=== PATIENT | male | born 1980 | race Caucasian/White ===

== ENCOUNTER 2017-01-19 15:51 | Emergency (ER) | payer SELFPAY ==
[2017-01-19 16:07] VITALS: BP 138/82; PULSE 93; TEMP 98; BMI 52.9
[2017-01-19] MEDS ORDERED: IBUPROFEN 600 MG TABLET (FP) PO ONE ×2 (16:25)
--- NOTE | 2017-01-19 17:25 | PDOC ---
History of Present Illness - General Chief Complaint: Injury Stated Complaint: FALL, LT SIDE PAIN Time Seen by Provider: 01/19/17 15:53 History Source: Patient Exam Limitations: No Limitations - History of Present Illness Initial Comments: 01/19/17 17:28 CC fell on steps in apt bldg yesterday with pain left hip, pelvis, and left knee Occurred: reports: yesterday Severity: reports: moderate Pain Location: reports: lower extremity Method of Injury: Yes: direct blow, fall Past History - Past Medical History Allergies/Adverse Reactions: Allergies Allergy/AdvReac Type Severity Reaction Status Date / Time venom-honey bee Allergy Mild Swelling Verified 01/19/17 15:54 [bee venom (honey bee)] Home Medications: Ambulatory Orders Omeprazole 20 mg PO PRN PRN 10/15/13 Ibuprofen 600 mg PO TID PRN #30 tablet 02/04/16 GI Disorders: Yes (GERD) - Surgical History Abdominal Surgery: Yes Cholecystectomy: Yes - Psycho/Social/Smoking Cessation Hx Anxiety: No Suicidal Ideation: No Smoking Status: Yes Smoking History: Current every day smoker Have you smoked in the past 12 months: Yes Number of Cigarettes Smoked Daily: 20 Information on smoking cessation initiated: No 'Breaking Loose' booklet given: 01/09/13 Hx Alcohol Use: No Drug/Substance Use Hx: No Substance Use Type: None Review of Systems - Review of Systems Constitutional: No: Chills, Fever, Malaise HEENTM: No: Symptoms Reported Respiratory: No: Symptoms reported ABD/GI: No: Symptoms Reported : No: Symptoms Reported, Hematuria Musculoskeletal: Yes: Gout, Joint Pain, Muscle Pain, Joint Stiffness Integumentary: No: Bruising, Lesions Neurological: No: Headache, Numbness, Paresthesia *Physical Exam - Vital Signs Last Vital Signs Temp Pulse Resp BP Pulse Ox 98 F 93 H 19 138/82 96 01/19/17 15:54 01/19/17 15:54 01/19/17 15:54 01/19/17 15:54 01/19/17 15:54 - Physical Exam General Appearance: Yes: Appropriately Dressed. No: Apparent Distress HEENT: positive: TMs Normal, Pharynx Normal Neck: positive: Supple. negative: Tender, Rigid Respiratory/Chest: positive: Lungs Clear, Accessory Muscle Use. negative: Chest Tender Cardiovascular: positive: Regular Rhythm, Regular Rate. negative: Murmur Gastrointestinal/Abdominal: negative: Tender, Organomegaly Musculoskeletal: positive: Other (tender to area lateral and just distal left knee; tender to left pelvis; no thigh pain) ED Treatment Course - RADIOLOGY Radiology Studies Ordered: Category Date Time Status KNEE 2 POS-LEFT [RAD] Stat Radiology 01/19/17 16:25 Taken PELVIS [RAD] Stat Radiology 01/19/17 16:25 Taken - Medications Given in the ED: ED Medications Discontinued Medications Generic Name Dose Route Start Last Admin Trade Name Roberto PRN Reason Stop Dose Admin Ibuprofen 600 mg 01/19/17 16:25 01/19/17 16:27 Motrin - PO 01/19/17 16:26 600 mg ONCE ONE Administration Medical Decision Making - Medical Decision Making 01/19/17 17:31 motrin given in ED; xrays read by me appear = wnl *DC/Admit/Observation/Transfer Diagnosis at time of Disposition: Contusion of left hip and thigh Qualifiers: Encounter type: initial encounter Qualified Code(s): S70.02XA - Contusion of left hip, initial encounter - Discharge Dispostion Disposition: HOME Condition at time of disposition: Stable Admit: No - Patient Instructions Additional Instructions: motrin 600mg 3 times daily; rest x 3 days - Post Discharge Activity Work/School Note: Back to Work
== END 2017-01-19 17:43 | disposition home or self-care (01) ==
LOC: JER 15:51 → JERFT 15:51
DX: S70.02XA Contusion of left hip, initial encounter (principal); S70.12XA Contusion of left thigh, initial encounter; W10.8XXA Fall (on) (from) other stairs and steps, initial encounter; Y93.89 Activity, other specified; Y92.038 Other place in apartment as the place of occurrence of the external cause; K21.9 Gastro-esophageal reflux disease without esophagitis
CPT/HCPCS: 72170-TC; 73560-TC-LT; 99281-25

== ENCOUNTER 2017-11-23 22:58 | Emergency (ER) | payer SELFPAY ==
--- NOTE | 2017-11-23 23:32 | PDOC ---
History of Present Illness - General Stated Complaint: ANKLE INJURY Time Seen by Provider: 11/23/17 23:19 History Source: Patient Exam Limitations: No Limitations - History of Present Illness Initial Comments: 11/23/17 23:27 37-year-old male morbidly obese male with h/o childhood asthma presents to the emergency department complaining of right lateral ankle pain. Patient states while he was walking this evening, he slipped and twisted his ankle/inversion causing 4/10 dull nonradiating intermittent discomfort. The pain is exacerbated on weight-bear and alleviated at rest. Patient denies any knee, foot, Achilles pain. Patient denies striking his head, neck or back. Patient denies extremity numbness or tingling sensation. Pt states he never fell, he caught himself by leaning onto a nearby car. Timing/Duration: momentarily Past History - Past Medical History Allergies/Adverse Reactions: Allergies Allergy/AdvReac Type Severity Reaction Status Date / Time venom-honey bee Allergy Mild Swelling Verified 01/19/17 15:54 [bee venom (honey bee)] Home Medications: Ambulatory Orders Omeprazole 20 mg PO PRN PRN 10/15/13 Ibuprofen 600 mg PO TID PRN #30 tablet 02/04/16 GI Disorders: Yes (GERD) - Surgical History Abdominal Surgery: Yes Cholecystectomy: Yes - Suicide/Smoking/Psychosocial Hx Smoking Status: Yes Smoking History: Current every day smoker Have you smoked in the past 12 months: Yes Number of Cigarettes Smoked Daily: 20 'Breaking Loose' booklet given: 01/09/13 Hx Alcohol Use: No Drug/Substance Use Hx: No Substance Use Type: None Review of Systems - Review of Systems Able to Perform ROS?: Yes Comments:: 11/23/17 23:29 CONSTITUTIONAL: Absent: fever, chills, diaphoresis, generalized weakness, malaise, loss of appetite MUSCULOSKELETAL: Absent: myalgia, arthralgia, joint swelling SKIN: Absent: rash, itching, pallor HEMATOLOGIC/IMMUNOLOGIC: Absent: easy bleeding, easy bruising, lymphadenopathy, frequent infections Right lat ankle pain Neg ext numbness/tingling sensation Is the patient limited Italian proficient: No *Physical Exam - Physical Exam Comments: 11/23/17 23:29 GENERAL: Well developed, well nourished. Awake and alert. No acute distress. HEENT: Normocephalic, atraumatic. PERRLA, EOMI. No conjunctival pallor. Sclera are non- icteric. Moist mucous membranes. Oropharynx is clear. MUSCULOSKELETAL Normal range of motion at all joints. No bony deformities or tenderness. No CVA tenderness. EXTREMITIES: No cyanosis. No clubbing. No edema. No calf tenderness. SKIN: Warm and dry. Normal capillary refill. No rashes. No jaundice. Right ankle Decreased R.O.M. +pain to lat aspect +STS neg obv deformities achilles intact Right foot 2+pedal pulse Neg obv deformities neg pain to base of 5th mt right knee F.R.O.M, Neg obv deformities neg pain on palp ED Treatment Course - RADIOLOGY Radiology Studies Ordered: Category Date Time Status ANKLE-RIGHT [RAD] Stat Radiology 11/23/17 23:18 Ordered Radiograph Interpretation: 11/23/17 23:31 Xray right knee 2v neg fx/dislocations *DC/Admit/Observation/Transfer Diagnosis at time of Disposition: Right ankle sprain Qualifiers: Encounter type: initial encounter Involved ligament of ankle: other ligament Qualified Code(s): S93.491A - Sprain of other ligament of right ankle, initial encounter - Discharge Dispostion Disposition: HOME Condition at time of disposition: Stable Admit: No - Referrals Referrals: Hemal George MD [Staff Physician] - - Patient Instructions Printed Discharge Instructions: DI for Ankle Sprain Additional Instructions: Ice; 20 mins on alternating with 20 mins off for 48 hours while awake. Rest Elevate Follow up with your orthopedic surgeon or the one listed on the discharge form. Return to the ER for severe/persistent/worsening symptoms, extremity numbness/ tingling sensation. - Post Discharge Activity Forms/Work/School Notes: Back to Work
[2017-11-24 00:03] VITALS: BP 128/86; PULSE 86; TEMP 97.6; BMI 34.8
== END 2017-11-24 00:13 | disposition home or self-care (01) ==
LOC: JER 22:58
DX: S93.491A Sprain of other ligament of right ankle, initial encounter (principal); X50.1XXA Overexertion from prolonged static or awkward postures, initial encounter; W18.39XA Other fall on same level, initial encounter; Y93.01 Activity, walking, marching and hiking; Y92.89 Other specified places as the place of occurrence of the external cause; Y99.8 Other external cause status; F17.210 Nicotine dependence, cigarettes, uncomplicated
CPT/HCPCS: 73610-TC-RT; 99282-25